=== PATIENT | female | born 1995 | race African-American/Black ===

== ENCOUNTER 2022-01-23 13:28 | Day surgery (SDC) | payer BC ==
[2022-01-23] MEDS ORDERED: hydrALAZINE 20 MG/ML VIAL SLOW IVP PRN (15:30)
[2022-01-23 19:35] LABS: Hemoglobin A1c 5.7 % (4.0-6.0)
== END 2022-01-23 17:14 | disposition home health service (06) ==
LOC: CSHLD/OP 13:28
PROVIDERS: ATTEND Family Medicine
DX: O36.8130 Decreased fetal movements, third trimester, not applicable or unspecified (principal); O98.513 Other viral diseases complicating pregnancy, third trimester; U07.1 COVID-19; O24.410 Gestational diabetes mellitus in pregnancy, diet controlled; O41.03X0 Oligohydramnios, third trimester, not applicable or unspecified; Z3A.37 37 weeks gestation of pregnancy
CPT/HCPCS: 36416; 76805; 83036; 99282

== ENCOUNTER 2022-02-09 18:00 | Inpatient (IN) | payer BC ==
[~2022-02-09 18:00] MED LIST: Bupivacaine 0.25% HCL 30 ML VIAL ONE; Bupivacaine HCl 0.5%/Epinephrine 1:200,000/PF 30 ml Vial ONE; ePHEDrine Sulfate 50 MG/10 ML VIAL ONE
[2022-02-09] MEDS ORDERED: Promethazine HCl 25 MG/ML VIAL IM PRN (19:22)
[2022-02-09] MEDS ORDERED: HYDROcodone/Acetaminophen 5/325 mg Tablet PO PRN (19:22)
[2022-02-09] MEDS ORDERED: Ondansetron PF 4 MG/2 ML Vial IVP PRN (19:22)
[2022-02-09] MEDS ORDERED: Misoprostol 200 MCG TAB PR PRN (19:22)
[2022-02-09] MEDS ORDERED: Carboprost 250 MCG/ML AMP IM PRN (19:22)
[2022-02-09] MEDS ORDERED: Lidocaine 1% (PF) 30 ML VIAL SC PRN (19:22)
[2022-02-09] MEDS ORDERED: Methylergonovine 0.2 MG/ML VIAL IM PRN (19:22)
[2022-02-09] MEDS ORDERED: Diphenoxylate HCl/Atropine Tablet PO PRN (19:22)
[2022-02-09] MEDS ORDERED: hydrALAZINE 20 MG/ML VIAL SLOW IVP PRN ×5 (19:22→20:57)
[2022-02-09] MEDS ORDERED: Ibuprofen 800 MG TAB PO PRN (19:22)
[2022-02-09 19:37] VITALS: BMI 44.0
[2022-02-09] MEDS ORDERED: NS w/ Oxytocin 30 units 500 ML IV SCH ×2 (20:00)
[2022-02-09] MEDS ORDERED: hydrALAZINE 20 MG/ML VIAL ONE (20:03)
[2022-02-09] MEDS ORDERED: Magnesium Sulfate 20 gm/500 ml 20 GM/500 ML BAG ONE (20:11)
[2022-02-09 20:24] LABS: Hemoglobin 9.8 g/dL (12.0-15.5); Mean Corpuscular HGB CONC 31.8 g/dL (32.0-36.0); Mean Corpuscular Volume 75.5 fl (81.6-98.3); Mean Platelet Volume 12.5 fl (7.4-10.4); Platelet Count 180 10x3/uL (150-450); RBC Distribution Width 15.5 % (11.5-14.5); Red Blood Cell (RBC) Count 4.08 10x6/uL (3.90-5.03); White Blood Cell (WBC) Count 6.7 10x3/uL (3.5-10.5)
[2022-02-09] MEDS ORDERED: Labetalol HCl 200 MG TAB PO SCH (20:30)
[2022-02-09] MEDS: Labetalol HCl 100 MG/20 ML VIAL SLOW IVP PRN (20:38)
[2022-02-09 20:47] LABS: ALT (SGPT) 40 U/L (8-55); AST (SGOT) 28 U/L (5-34); Albumin 3.1 g/dL (3.5-5.0); Alkaline Phosphatase 154 U/L (40-110); Anion Gap 15 mmol/L (10-20); BUN (Urea Nitrogen) 5 mg/dL (7.0-18.7); Bilirubin, Total 0.3 mg/dL (0.2-1.2); Calc. Creatinine Clearance 257 mL/min (70-130); Calcium 8.9 mg/dL (7.8-10.44); Carbon Dioxide 18 mmol/L (22-29); Chloride 106 mmol/L (98-107); Estimated GFR 126; Globulin 3.1 g/dL (2.4-3.5); Glucose 69 mg/dL (70-105); Potassium 3.9 mmol/L (3.5-5.1); Protein, Total 6.2 g/dL (6.0-8.3); Sodium 135 mmol/L (136-145)
[2022-02-09 20:56] LABS: Syphilis Antibody Nonreactive (Nonreactive); Syphilis Antibody Index 0.05 S/CO (<1.00 Non-Reactive)
[2022-02-09] MEDS ORDERED: Calcium Gluc 4.6 MEQ/10 ML (100 MG/ML) SLOW IVP PRN (20:57)
[2022-02-09] MEDS ORDERED: Labetalol HCl 100 MG/20 ML VIAL SLOW IVP PRN ×3 (20:57)
[2022-02-09] MEDS ORDERED: Lorazepam 2 MG/ML VIAL SLOW IVP PRN (20:57)
[2022-02-09 21:38] LABS: HBSAg Index 0.23 S/CO (0-0.99); Hep B Surf Ag Non-Reactive S/CO (NonReactive)
[2022-02-09] MEDS: Acetaminophen 500 MG TAB PO PRN (23:33)
[2022-02-09] MEDS: Misoprostol 100 MCG TAB VAG SCH (23:34)
[2022-02-10] MEDS ORDERED: Penicillin G Potassium 5 MILL.UNITS in Sodium Chloride 0.9% 100 ML IVPB SCH
[2022-02-10] MEDS ORDERED: Calcium Carbonate 500 MG ChewTAB PO PRN (00:24)
[2022-02-10] MEDS: Penicillin G 2.5 MILL.units 2.5 MILL.UNITS in Premix Bag 1 BAG IVPB SCH ×4 (03:44→15:32)
[2022-02-10] MEDS ORDERED: Labetalol HCl 200 MG TAB PO SCH (05:45)
[2022-02-10] MEDS: Acetaminophen 500 MG TAB PO PRN (06:10)
[2022-02-10] MEDS: Lactated Ringer's 1,000 ML IV SCH ×3 (07:25→12:13)
[2022-02-10] MEDS: Misoprostol 100 MCG TAB VAG SCH ×2 (09:15→09:16)
[2022-02-10] MEDS ORDERED: Fentanyl 2 mcg/Bup 0.1% Cadd 100 ML ONE (10:52)
[2022-02-10] MEDS ORDERED: ePHEDrine Sulfate 50 MG/10 ML VIAL SLOW IVP PRN (11:49)
[2022-02-10] MEDS ORDERED: Moisturizing Cream (Eucerin) 113 GM JAR TOP PRN ×2 (11:49→20:24)
[2022-02-10] MEDS ORDERED: Promethazine HCl 25 MG/ML VIAL IM PRN ×3 (11:49→20:31)
[2022-02-10] MEDS ORDERED: Ondansetron PF 4 MG/2 ML Vial IVP PRN ×3 (11:49→20:31)
[2022-02-10] MEDS ORDERED: Acetaminophen 325 MG TAB PO PRN (11:49)
[2022-02-10] MEDS ORDERED: diphenhydrAMINE 50 MG/ML VIAL IVP PRN ×2 (11:49→20:24)
[2022-02-10] MEDS ORDERED: Naloxone HCl 0.4 mg/ml Vial IVP PRN ×4 (11:49→20:24)
[2022-02-10] MEDS ORDERED: Lactated Ringer's 500 ML IV PRN (11:49)
[2022-02-10] MEDS ORDERED: Communication Order-Pharmacy FS SCH ×2 (12:00→20:30)
[2022-02-10] MEDS ORDERED: Fentanyl 2 mcg/Bupivacaine 0.1% Cassette 100 ML EPIDURAL SCH (12:00)
[2022-02-10] MEDS: Magnesium Sulfate 20 gm/500 ml 20 GM/500 ML BAG IVPB SCH (15:01)
[2022-02-10] MEDS ORDERED: Azithromycin 500 MG VIAL ONE (15:58)
[2022-02-10] MEDS ORDERED: Famotidine/PF 20 mg/2ml Vial ONE (15:59)
[2022-02-10] MEDS ORDERED: CEFAZOLIN 2 GM VIAL ONE (15:59)
[2022-02-10] MEDS ORDERED: Bicitra 30 ML UDCUP PO PRN (15:59)
[2022-02-10] MEDS ORDERED: Famotidine/PF 20 mg/2ml Vial SLOW IVP PRN (15:59)
[2022-02-10] MEDS ORDERED: CEFAZOLIN 2 GM in Sodium Chloride 0.9% 100 ML IVPB SCH (16:00)
[2022-02-10] MEDS ORDERED: Azithromycin 500 MG in Sodium Chloride 0.9% 250 ML 250 ML IVPB SCH (16:00)
[2022-02-10] MEDS ORDERED: Ketorolac Tromethamine 30 MG/ML VIAL ONE (16:17)
[2022-02-10] MEDS ORDERED: Ondansetron PF 4 MG/2 ML Vial ONE (16:17)
[2022-02-10] MEDS ORDERED: Dexamethasone 4 mg/ml Vial ONE (16:17)
[2022-02-10] MEDS ORDERED: Lidocaine 2% MPF 10 ML AMP (For Epidural Use) ONE (16:17)
[2022-02-10] MEDS ORDERED: Morphine PF 10 MG/10 ML VIAL ONE (16:17)
[2022-02-10] MEDS ORDERED: Oxytocin 10 UNITS/ML VIAL ONE (16:18)
[2022-02-10] MEDS ORDERED: Carboprost 250 MCG/ML AMP ONE (16:43)
[2022-02-10] MEDS ORDERED: Midazolam HCl 2 mg/2 ml Vial ONE (16:47)
[2022-02-10] MEDS ORDERED: NIFEdipine XL 30 MG TAB PO SCH (18:30)
[2022-02-10] MEDS ORDERED: Meperidine HCl/PF 25 MG/ML VIAL SLOW IVP PRN (20:24)
[2022-02-10] MEDS ORDERED: Fentanyl 100 MCG/2 ML VIAL SLOW IVP PRN (20:24)
[2022-02-10] MEDS ORDERED: Promethazine HCl 25 MG SUPP PR PRN (20:24)
[2022-02-10] MEDS ORDERED: Ondansetron HCl/PF 4 MG/2 ML Vial IVP PRN (20:24)
[2022-02-10] MEDS ORDERED: Naloxone HCl 0.4 mg/ml Vial IV PRN (20:24)
[2022-02-10] MEDS: Labetalol HCl 100 MG/20 ML VIAL SLOW IVP PRN (20:30)
[2022-02-10] MEDS ORDERED: Lanolin Ointment 7 GM TUBE TOP PRN (20:31)
[2022-02-10] MEDS ORDERED: Simethicone Chewable 80 MG TAB PO PRN (20:31)
[2022-02-10] MEDS ORDERED: diphenhydrAMINE 25 MG CAP PO PRN (20:31)
[2022-02-10] MEDS ORDERED: Boostrix 0.5 ML (Tdap) VIAL IM ONE (20:31)
[2022-02-10] MEDS ORDERED: hydrALAZINE 20 MG/ML VIAL SLOW IVP PRN (20:31)
[2022-02-10] MEDS ORDERED: Bisacodyl 10 MG SUPP PR PRN (20:31)
[2022-02-10] MEDS ORDERED: Ketorolac Tromethamine 30 MG/ML VIAL IVP SCH (22:30)
[2022-02-11 05:33] LABS: Platelet Count 176 10x3/uL (150-450)
[2022-02-11 05:34] LABS: Hemoglobin 9.5 g/dL (12.0-15.5); Mean Corpuscular HGB CONC 31.7 g/dL (32.0-36.0); Mean Corpuscular Hemoglobin 24.1 pg (27.0-33.0); Mean Corpuscular Volume 75.9 fl (81.6-98.3); Mean Platelet Volume 13.2 fl (7.4-10.4); RBC Distribution Width 15.9 % (11.5-14.5); Red Blood Cell (RBC) Count 3.95 10x6/uL (3.90-5.03); White Blood Cell (WBC) Count 14.4 10x3/uL (3.5-10.5)
[2022-02-11] MEDS: Ketorolac Tromethamine 30 MG/ML VIAL IVP SCH ×4 (06:15→19:56)
[2022-02-11] MEDS: Docusate 100 MG CAP PO SCH ×3 (08:22→20:51)
[2022-02-11] MEDS: Ferrous Sulfate 325 MG TAB PO SCH ×3 (08:22→20:51)
[2022-02-11] MEDS: Prenatal Vitamin 1 TAB PO SCH (08:23)
[2022-02-11] MEDS ORDERED: Lorazepam 2 MG/ML VIAL SLOW IVP PRN (08:30)
[2022-02-11] MEDS ORDERED: HYDROcodone/Acetaminophen 5/325 mg Tablet PO PRN (08:30)
[2022-02-11] MEDS: NIFEdipine XL 30 MG TAB PO SCH (08:58)
[2022-02-11] MEDS: Magnesium Sulfate 20 gm/500 ml 20 GM/500 ML BAG IVPB SCH (13:17)
[2022-02-11] MEDS: Lactated Ringer's 1,000 ML IV SCH (18:38)
[2022-02-11] MEDS: Penicillin G 2.5 MILL.units 2.5 MILL.UNITS in Premix Bag 1 BAG IVPB SCH (18:39)
[2022-02-11] MEDS: Ibuprofen 800 MG TAB PO SCH (23:54)
[2022-02-12] MEDS: Docusate 100 MG CAP PO SCH ×2 (08:25→21:45)
[2022-02-12] MEDS: Prenatal Vitamin 1 TAB PO SCH (08:25)
[2022-02-12] MEDS: NIFEdipine XL 30 MG TAB PO SCH (08:26)
[2022-02-12] MEDS: Ibuprofen 800 MG TAB PO SCH ×3 (08:26→23:19)
[2022-02-12] MEDS: Ferrous Sulfate 325 MG TAB PO SCH ×2 (08:27→21:45)
[2022-02-12] MEDS ORDERED: NIFEdipine XL 30 MG TAB PO SCH (17:00)
[2022-02-12 18:01] LABS: Bilirubin Neg (Negative); Blood, Urine 50 (Negative); Clarity Clear (Clear); Glucose, Urine (Dipstick) Normal (Negative); Ketone, Urine Negative (Negative); Leukocyte Negative (Negative); Nitrite Negative (Negative); Protein, Urine (Dipstick) Negative (Neg-Trace); Specific Gravity, Urine 1.005 (1.002-1.036); Urobilinogen Normal mg/dL (Less than 2)
[2022-02-12 18:04] LABS: Urine Culture Reflex No No
[2022-02-12 18:09] LABS: Bacteria/HPF None Seen HPF (None Seen); RBC/HPF 0-3 HPF (0-3); Squamous Epithelial 0-3 HPF (0-3); WBC/HPF 0-3 HPF (0-3)
[2022-02-13] MEDS ORDERED: NIFEdipine XL 60 MG TAB PO SCH (09:00)
[2022-02-13] MEDS: Ferrous Sulfate 325 MG TAB PO SCH (09:20)
[2022-02-13] MEDS: Docusate 100 MG CAP PO SCH (09:21)
[2022-02-13] MEDS: Ibuprofen 800 MG TAB PO SCH ×2 (09:21→16:52)
[2022-02-13] MEDS: Prenatal Vitamin 1 TAB PO SCH (09:21)
[2022-02-13] MEDS: HYDROcodone/Acetaminophen 5/325 mg Tablet PO PRN ×2 (09:22→16:52)
[2022-02-13 16:42] VITALS: BP 132/71; TEMP 98.2
== END 2022-02-13 20:05 | disposition home or self-care (01) | DRG 788 ==
LOC: CSHLD 18:55 → CSHPP 02-11 17:59
PROVIDERS: ADMIT Family Medicine; ATTEND Family Medicine
PROC: 10D00Z1 Extraction of Products of Conception, Low, Open Approach (ICD-10-PCS; principal; 2022-02-10)
DX: O99.824 Streptococcus B carrier state complicating childbirth (principal); O24.420 Gestational diabetes mellitus in childbirth, diet controlled; Z3A.39 39 weeks gestation of pregnancy; Z37.0 Single live birth; O14.14 Severe pre-eclampsia complicating childbirth; O76 Abnormality in fetal heart rate and rhythm complicating labor and delivery
CPT/HCPCS: 36415; 36416; 51702; 80053; 81001; 82570; 84156; 85027; 86780; 86850; 86900; 86901; 87340; J0360; J0456; J0690; J1100; J1885; J2250; J2274; J2405; J2540; J2590; J3475; J3490; J7120; S0020; S0028

== ENCOUNTER 2023-07-15 12:13 | Outpatient (CLI) | payer BC | END 2023-07-15 12:14 | disposition home or self-care (01) | LOC: CSHRAD 12:13 | PROVIDERS: ATTEND Family Medicine | DX: M54.2 Cervicalgia (principal); M54.6 Pain in thoracic spine | CPT/HCPCS: 72040; 72070 ==